=== PATIENT | male | born 1955 | race Caucasian/White ===

== ENCOUNTER 2019-04-19 06:15 | Day surgery (SDC) | payer MEDICARE, OTHER ==
[~2019-04-19] VITALS: Ht 180.3 cm; Wt 117.9 kg
[2019-04-19] MEDS ORDERED: THYROID PO (06:37)
[2019-04-19] MEDS ORDERED: TOPROL XL25 MG PO (06:37)
[2019-04-19] MEDS ORDERED: ASPIRIN325 MG PO (06:38)
[2019-04-19] MEDS ORDERED: FISH OIL 1,0001 EAC2 NG (06:38)
[2019-04-19] MEDS ORDERED: NIACIN50 MG PO (06:39)
[2019-04-19] MEDS ORDERED: MSM500 MG PO (06:39)
[2019-04-19] MEDS ORDERED: OMEPRAZOLE20 MG PO (06:50)
[2019-04-19] MEDS ORDERED: FLOMAX0.4 MG PO (06:51)
--- NOTE | 2019-04-19 08:42 | NUR ---
04/19/19 0842 Millie Agustin 0812 PT ARRIVED IN PACU SLEEPY WITH NO C/O'S. ABD SOFT. 0820 OXYGEN REMOVED. SATS DROPPED TO 88% ON RA. O2 AT 1L VIA NC WITH SATS 90-93%. 0830 SITTING UP IN BED SIPPING ON WATER.
--- NOTE | 2019-04-20 13:17 | OR ---
[facility] [address] [place], [place] [address] Signed DATE OF OPERATION: 04/19/2019 SURGEON: Johnny Pedersen MD PREOPERATIVE DIAGNOSIS: Episodic left lower abdominal pain, bowel habit changes including diarrhea. POSTOPERATIVE DIAGNOSIS: Sigmoid diverticulosis, otherwise normal. PROCEDURE: Total colonoscopy to cecum with biopsy of cecum and rectum. ANESTHESIA: Intravenous sedation, fentanyl 100 mcg, Versed 5 mg. INDICATION: This 63-year-old white man is a patient of Jacobo Vargas in [place], [place]. He is noted to have episodic left lower abdominal pain, bowel habit changes including constipation sometimes and diarrhea. He has had no blood per rectum. He has no family history of colon cancer. He is admitted to undergo colonoscopy. He understands the risks of bleeding, infection, and perforation. FINDINGS: The prep was good. Complete colonoscopy was undertaken to the cecum without question. He had no sign of inflammatory bowel disease. He did have diverticular change of the sigmoid. There was some internal hemorrhoidal change as well. He had no polyps, but biopsies were taken of the rectum and cecum to assess for occult colitis. DESCRIPTION OF PROCEDURE: The patient was brought to the endoscopy suite and placed in lateral decubitus position, given intravenous sedation to the point of slurred speech and nystagmus. Digital rectal examination was normal. An Olympus video colonoscope was passed in the rectum and manipulated throughout the colon ultimately intubating the cecum. The ileocecal valve and appendiceal orifice were normal. The scope was manipulated allowing for biopsy of the cecum to rule out occult colitis. The scope was then withdrawn and examination throughout showed no sign of abnormality other than diverticular changes of the sigmoid and left colon. Retroflexed view was normal as well except for some internal hemorrhoidal change. A biopsy was Electronically Signed By: JOHNNY PEDERSEN MD 04/20/19 1317 PATIENT NAME: GABRIEL VALENZUELA OPERATIVE REPORT DATE OF : 51 REPORT #: [id number] PHYSICIAN: JOHNNY PEDERSEN MD PCP: JACOBO VARGAS REPORT IS CONFIDENTIAL AND NOT TO BE RELEASED WITHOUT AUTHORIZATION [facility] [address] [facility] [place], [place] [address] Signed taken in the rectum. The scope was withdrawn and removed. The patient was taken to recovery room in good condition. CONCLUDING DIAGNOSIS: Diverticulosis, most likely source of his current symptoms. PLAN: Recommend high-fiber diet and repeat colonoscopy in 10 years, sooner if symptoms should occur. MD MOHSEN Reyes/SHANNONL /[id number] cc: Jacobo Vargas Copies: JACOBO VARGAS ~ Electronically Signed By: JOHNNY PEDERSEN MD 04/20/19 1317 PATIENT NAME: GABRIEL VALENZUELA OPERATIVE REPORT DATE OF : 51 REPORT #: [id number] PHYSICIAN: JOHNNY PEDERSEN MD PCP: JACOBO VARGAS REPORT IS CONFIDENTIAL AND NOT TO BE RELEASED WITHOUT AUTHORIZATION
--- NOTE | 2019-04-20 17:21 | PATH ---
[facility] [address] [facility] [place] [address] Signed SPECIMEN(S): A CECUM SPECIMEN(S): B RECTUM SPECIMEN SOURCE: A. CECUM B. RECTUM CLINICAL HISTORY: Preop DX: Screening. Postop DX: Normal-appearing colon with diverticula. MICROSCOPIC DESCRIPTION: Histologic sections of all submitted blocks are examined by light microscopy. These findings, together with the gross examination, support the pathologic diagnosis. FINAL PATHOLOGIC DIAGNOSIS: A. Colon, cecum, biopsy: - Colonic mucosa with no histopathologic abnormality. - Negative for dysplasia or malignancy. B. Rectum, biopsy: - Rectal mucosa with no histopathologic abnormality. - Negative for dysplasia or malignancy. NAL:cml:C2NR GROSS DESCRIPTION: Two specimens are received in two containers, labeled "LI." A. The specimen, labeled "LI cecum," is received in formalin and consists of two mabry tissue fragments measuring 0.3 cm each. Specimen is entirely submitted in cassette (A1). B. The specimen, labeled "LI, rectum," is received in formalin and consists of two mabry tissue fragments ranging from 0.3 to 0.2 cm. Specimen is entirely submitted in cassette (B1). AT (under the direct supervision of a pathologist) The Gross Description was prepared using a voice recognition system. The report was reviewed for accuracy; however, sound-alike word errors, addition and/or deletions may occur. If there is any question about this report, please contact Client Services. PERFORMING LABORATORY: The technical component was performed by [facility], [address] [place] [id number] (Tape Fastener Machine Operator: Ailyn Luceor MD; CLIA# [id number]). Professional interpretation was performed by PATIENT NAME: GABRIEL VALENZUELA PATHOLOGY DATE OF : 51 REPORT #: [id number] PHYSICIAN: [facility] PCP: ELIE ALVAREZ REPORT IS CONFIDENTIAL AND NOT TO BE RELEASED WITHOUT AUTHORIZATION [facility] [address] [place], [place] [address] Signed [facility], [facility], [address] [facility] [address] [place], [place] [address] (Tape Fastener Machine Operator: Fred Aguilar MD; CLIA# [id number]). Diagnostician: Caren Lee MD Pathologist Electronically Signed 04/20/2019 Copies: ~ PATIENT NAME: GABRIEL VALENZUELA PATHOLOGY DATE OF : 51 REPORT #: [id number] PHYSICIAN: [facility] PCP: ELIE ALVAREZ REPORT IS CONFIDENTIAL AND NOT TO BE RELEASED WITHOUT AUTHORIZATION
== END 2019-04-19 09:12 | disposition home or self-care (01) ==
LOC: OPS 06:15 → DS 06:15 → OPS 06:45 → DS 07:30 → OPS 09:12
PROVIDERS: Surgery
PROC: 0DBP8ZX Excision of Rectum, Via Natural or Artificial Opening Endoscopic, Diagnostic (ICD-10-PCS; 2019-04-19)
PROC: 0DBH8ZX Excision of Cecum, Via Natural or Artificial Opening Endoscopic, Diagnostic (ICD-10-PCS; principal; 2019-04-19 06:45)
DX: R19.7 Diarrhea, unspecified (principal); K57.30 Diverticulosis of large intestine without perforation or abscess without bleeding; K64.8 Other hemorrhoids; K21.0 Gastro-esophageal reflux disease with esophagitis; E66.01 Morbid (severe) obesity due to excess calories; Z88.0 Allergy status to penicillin; Z79.899 Other long term (current) drug therapy; Z68.36 Body mass index [BMI] 36.0-36.9, adult; Z79.890 Hormone replacement therapy
CPT/HCPCS: 99153; G0500; J0690; J2250; J3010

== ENCOUNTER 2021-11-29 18:19 | Emergency (ER) | payer OTHER, MEDICARE ==
[~2021-11-29] VITALS: Ht 180.3 cm; Wt 106.6 kg
[~2021-11-29 18:19] MED LIST: ASPIRIN325 MG PO; FISH OIL 1,0001 EAC2 NG; FLOMAX0.4 MG PO; MSM500 MG PO; NIACIN50 MG PO; OMEPRAZOLE20 MG PO; THYROID PO; TOPROL XL25 MG PO
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
[2021-11-29] MEDS ORDERED: ULTRAM50 MG PO (20:05)
== END 2021-11-29 21:00 | disposition home or self-care (01) ==
LOC: ED 18:19
DX: S93.601A Unspecified sprain of right foot, initial encounter (principal); S91.311A Laceration without foreign body, right foot, initial encounter; M25.571 Pain in right ankle and joints of right foot; Z88.0 Allergy status to penicillin; Z79.899 Other long term (current) drug therapy; Z79.82 Long term (current) use of aspirin; V28.0XXA Motorcycle driver injured in noncollision transport accident in nontraffic accident, initial encounter
CPT/HCPCS: 73610; 73630; 99284-25; A9270